=== PATIENT | female | born 1975 | race Caucasian/White ===

== ENCOUNTER → 2018-01-15 12:10 | Outpatient (CLI) | payer BC, SELFPAY ==
[2018-01-15 17:02] LABS: Anion Gap 10 (5-15); BUN 10 mg/dL (7-18); BUN/Creat Ratio 11.5 RATIO (10-20); Calcium,Total 9.4 mg/dL (8.5-10.1); Chloride 106 mmol/L (98-107); Cholesterol 188 mg/dL (200); Creatinine, Serum 0.87 mg/dL (0.55-1.02); EST Glomerular Filtration Rate 76 mL/min (>60); Est Glom Filt Rate - Afr Amer 91 mL/min (>60); Glucose 85 mg/dL (74-106); High Density Lipoprotein 48 mg/dL; LDH 248 U/L (84-246); Potassium 4.6 mmol/L (3.5-5.1); Sodium Level 140 mmol/L (136-145); Triglycerides 183 mg/dL; Very Low Density Lipoprotein 37 mg/dL (5-40)
== END ==
PROVIDERS: Family Provider Family Medicine; PCP Family Medicine; Visit Provider Family Medicine
DX: Z00.00 Encounter for general adult medical examination without abnormal findings (principal); C43.70 Malignant melanoma of unspecified lower limb, including hip
CPT/HCPCS: 36415; 80048; 80061; 83615

== ENCOUNTER → 2019-04-06 11:03 | Outpatient (CLI) | payer BC, SELFPAY ==
[2019-04-06 12:26] LABS: Hematocrit 45.5 % (37-47); Hemoglobin 14.1 g/dL (12.0-15.0); Mean Corpuscular Volume 96.8 fL (81-99); Platelet Count 270 K/mm3 (150-450); RBC Distribution Width CV 13.4 % (11.6-14.6); RBC Distribution Width SD 48.4 fl (35.1-43.9); White Blood Count 5.9 K/mm3 (4.4-11.0)
[2019-04-06 12:55] LABS: Anion Gap 6 (5-15); BUN 13 mg/dL (7-18); BUN/Creat Ratio 13.3 RATIO (10-20); Calcium,Total 9.5 mg/dL (8.5-10.1); Chloride 107 mmol/L (98-107); Creatinine, Serum 0.98 mg/dL (0.55-1.02); EST Glomerular Filtration Rate 66 mL/min (>60); Est Glom Filt Rate - Afr Amer 80 mL/min (>60); Glucose 85 mg/dL (74-106); LDH 156 U/L (84-246); Sodium Level 140 mmol/L (136-145)
== END ==
PROVIDERS: Nurse Practitioner Family; PCP Family Medicine; Visit Provider Family Medicine
DX: Z00.00 Encounter for general adult medical examination without abnormal findings (principal)
CPT/HCPCS: 36415; 80048; 83615; 85027

== ENCOUNTER → 2020-05-23 12:16 | Outpatient (CLI) | payer BC, SELFPAY ==
--- NOTE | 2020-05-23 12:19 | BI_ITS ---
MAMMOGRAPHY - BILATERAL SCREENING REASON FOR EXAM: Female, 44 years old. Routine annual screening examination. PERTINENT HISTORY: Non-contributory. TECHNIQUE: Digital bilateral breast thaddeus (3D mammographic acquisition) in the CC and MLO projections. 2-D mediolateral oblique (MLO) and craniocaudad (CC) views of both breasts were obtained. CAD: Full Field Digital Mammography with Computer Added Detection was performed. COMPARISON: Comparison is made with prior study dated 09/12/2016. FINDINGS: Breast Composition: There are scattered areas of fibroglandular density. There are no dominant masses or suspicious calcifications. No other significant abnormalities are identified. There has been no significant change since the prior study. BI/SCRN MAMM (CAD)W/THADDEUS BILAT IMPRESSION: Stable bilateral screening mammogram. Yearly follow-up mammogram recommended. (A) ASSESSMENT CATEGORY: BIRADS Category 1: Negative. A letter regarding these results will be sent to the patient by the facility within 30 days. Approximately 10% of breast cancers are not detected by mammography. A normal mammogram should not delay biopsy of a clinically suspicious abnormality. [id number] Electronically Signed: Castro Boateng MD at 8:41 EDT , Service support ,
== END ==
PROVIDERS: PCP Family Medicine; Referring Provider Student in an Organized Health Care Education/Training Program; Visit Provider Student in an Organized Health Care Education/Training Program
DX: Z12.31 Encounter for screening mammogram for malignant neoplasm of breast (principal)
CPT/HCPCS: 77063; 77067

== ENCOUNTER → 2020-09-06 12:26 | Outpatient (CLI) | payer BC, SELFPAY ==
[2020-09-07 20:08] LABS: Chlamydia By Nucleic Acid AMP Negative (Negative)
[2020-09-07 22:18] LABS: Gonococcus By Nucleic Acid AMP Negative (Negative)
[2020-09-08 22:30] LABS: HPV APTIMA, High Risk Negative (Negative)
== END ==
PROVIDERS: PCP Family Medicine; Visit Provider Obstetrics & Gynecology
DX: Z11.3 Encounter for screening for infections with a predominantly sexual mode of transmission (principal); Z12.4 Encounter for screening for malignant neoplasm of cervix
CPT/HCPCS: 87491; 87591; 87624; 88175; G0145

== ENCOUNTER 2021-06-01 11:13 | Outpatient (CLI) | payer BC, SELFPAY | END 2021-06-01 23:59 | disposition home or self-care (01) | PROVIDERS: PCP Family Medicine; Visit Provider Obstetrics & Gynecology | DX: R10.2 Pelvic and perineal pain (principal); N77.1 Vaginitis, vulvitis and vulvovaginitis in diseases classified elsewhere | CPT/HCPCS: 87086; 87088 ==

== ENCOUNTER 2021-09-21 07:38 | Day surgery (SDC) | payer BC, SELFPAY ==
[2021-09-21] VITALS (7 sets, daily range): BP systolic 108–137; BP diastolic 60–81; PULSE 64–97; RESP 16; TEMP 36.2–36.8; O2SAT 92–100; BMI 28.0
--- NOTE | 2021-09-21 | EMB_PTH ---
PATIENT: RA GUSTAFSON [place] [facility] [place][id number] AGE/SX: 45/F ROOM: RE09/21/[address]: Dr. Alicia Lo DO : 1975 BED: DIS: 09/21/2021 SPEC #: [id number] RECD: 09/21/21 11:10 STATUS: DERREK REYasmany #: [id number] LEXI: 09/21/21 00:[address]: Alicia Lo DEPT: SURGICAL PATHOLOGY RECD BY: Fritz Nayak ENTERED: 09/21/21 11:10 SP TYPE: ENDOM BX/C TAMELA DR: Dr. Jaymie Hammond MD Tissues: Endometrium, NOS Procedures: Surgery Specimen Level IV HEADER OPERATION: Hysteroscopy, D & C Ruth, IUD removal PRE-OP DIAGNOSIS: Abnormal uterine bleeding TISSUE SUBMITTED: Endometrial curettings MICROSCOPIC DIAGNOSIS Endometrial curettings: Dyssynchronous endometrium consisting of endometrial tissue with extensive exogenous hormone effect and focal area showing secretory endometrium with cystic changes. See comment. MAX:juana 09/22/2021 COMMENT A few of the fragments have polypoid appearance and may represent fragments of polyp. Clinical correlation and appropriate follow up are necessary. MICROSCOPIC DESCRIPTION Slides are reviewed. GROSS DESCRIPTION Received in fixative is one container labeled with the patient's name and designated endometrial curettings. The specimen consists of multiple irregular fragments of chou soft tissue that in aggregate measure 2.5 x 1 x 0.1 cm. The specimen is totally submitted in one cassette. / MAX:juana 09/21/2021 TC:5 CPT: 22620
--- NOTE | 2021-09-21 06:59 | PCM.HP.BLA ---
History and Physical Date of Admission: 09/21/21 HPI: 45 yo female presenting for hysteroscopy, dilation and curettage, endometrial ablation, IUD removal. ALLERGIES: Levaquin, Chest palpitations, Pcn, Trouble breathing, Levaquin, Palpitations, Penicillins, Anaphylaxis, Clindamycin and Heartburn MEDICATIONS HISTORY: 1. Liletta 20.1 mcg/24 hrs (6 yrs) 52 mg intrauterine device, As Directed 2. Singulair 4 mg chewable tablet, One pill by mouth once a day SURGICAL HISTORY: 1. 03/18/1997 Kidney stone removal when prg 2. 03/18/1980 T and A and Ear tubes 3. Melanoma, 02/28, L calf PAST PREGNANCIES: Total Pregnancies - 2; Full Term Pregnancies - 2; Premature - 0; Abortions, Induced - 0; Abortions, Spontaneous - 0; Ectopics - 0; Multiple Births - 0; Living Children - 2 FAMILY HISTORY: Father - FH: Diabetes mellitus type 2; Father - Ischemic heart disease; Mother - FH: Diabetes mellitus type 2; MaternalGrandparent - Ischemic heart disease; PaternalGrandparent - FH: Diabetes mellitus type 2; SOCIAL HISTORY: Alcohol Use - RARELY Smoking - denies smoking Drug Use - denies REVIEW OF SYSTEMS: GENERAL - Denies fever, or chills SKIN - Denies skin changes EYES - Denies visual changes EARS - Denies difficulty hearing NOSE - Denies nasal congestion or bleeding MOUTH - Denies sore throat or difficulty swallowing NECK - Denies pain or swelling RESPIRATORY - Denies shortness of breath or wheezing CARDIOVASCULAR - Denies palpitations or chest pain GASTROINTESTINAL - Denies nausea, vomiting, diarrhea, constipation GENITOURINARY - Denies dysuria, frequency of urination, incontinence of urine MUSCULOSKELETAL - Denies joint or muscle pain NEUROLOGICAL - Denies localized numbness or weakness PSYCHIATRIC - Denies depression or anxiety ENDOCRINE - Denies heat or cold intolerance, weight loss or gain HEMATO-IMMUNOLOGIC - Denies excessive bleeding with cuts PHYSICAL EXAMINATION BP- 120/64 Sitting, Right arm, regular cuff Weight- 177.0 lbs Height- 66.0 inch BMI:28.57 CONSTITUTIONAL - NAD, well nourished, and well developed SKIN - No rash, lesions, or ulcers HEENT - Normocephalic, PERRLA, EOMI LUNGS - CTA x2 without wheezes, crackles or rales CARDIAC - Regular rate and rhythm without rubs, murmurs, or gallops EXTREMITIES - No edema or calf tenderness NEUROLOGICAL - Cranial nerves II-XII grossly intact ASSESSMENT/PLAN: 1. Irregular Menstrual Cycle (BTB) Liletta placement August 2020. Has had irregular bleeding. Unpredictable. Not tolerating irregular bleeding with IUD. Plan for: hysteroscopy, dilation and curettage, endometrial ablation with heena, IUD removal R/B/A discussed, risks include, but are not limited to: risk of bleeding to the point of transfusion, infection, injury to surrounding tissue (bowel/bladder/uterine perforation), VTE, ICU admission. Pt aware and consented
[2021-09-21 08:12] LABS: Internal QC Validated? YES +Cl - CLEAR BKGD; Pregnancy, Urine Negative Negative
[2021-09-21] MEDS: Lactated Ringers 1,000 ML 125 ML IV ×2 (08:14→09:30)
--- NOTE | 2021-09-21 09:20 | DCINST_ITS ---
Discharge Instructions Diet Discharge Diet: No restrictions Activity Discharge Activity: Return to Normal Activity and May Shower May resume sexual activity in: 2 weeks Weight Bearing Status: Weight bearing as tolerated Lifting Restrictions: None Dressing / Incision Call your doctor if you observe: Fever of 101 or Higher, Change in Color, Inability to urinate, Using more than 1 pad per hour, Shortness of breath, Dizziness, Swelling in the ankles, Chest pain and Calf discomfort Follow Up Care Please Follow Up With: Alicia Lo DO When: 1-2 week postoperative visit Test Results: Test results from this visit will be discussed in further detail at your follow- up appointment, if applicable. Discharge Plan Admission Primary Reason for Your Visit: Hysteroscopy, dilation curettage, ablation, IUD removal Attending Provider: Alicia Lo Primary Care Provider: Jaymie Hammond Discharge Orders/Prescriptions Prescriptions: No Action cetirizine [Zyrtec] 10 mg Tablet 10 mg PO QHS montelukast [Singulair] 10 mg Tablet 10 mg PO DAILY multivitamin Capsule 1 cap PO DAILY Mirena 20 mcg/24 hours (7 yrs) 52 mg Intrauterine Device 20 mcg INTRAUTERINE DAILY Referrals / Follow Up: Jaymie Hammond MD [Primary Care Provider] - Disposition Disposition (needs filled in before D/C Order can be placed): Home, Self Care
--- NOTE | 2021-09-21 09:20 | PCM.OPRPT ---
Report of Operation Date of Procedure: 09/21/21 Pre-Operative Diagnosis: Abnormal uterine bleeding Post-Operative Diagnosis: Abnormal uterine bleeding Surgery/Procedure Performed:: Hysteroscopy, dilation curettage, endometrial ablation, removal of intrauterine device Description of Surgical Findings:: Normal-appearing external genitalia. IUD strings visualized, entire IUD removed. Normal-appearing endometrial cavity. Minimal uterine descensus. Type of Anesthesia: MAC Specimen's removed: Endometrial curettings Estimated Blood Loss (mL): 5 cc Fluids Replaced: 900cc Description of Procedure: Indications/risk/benefits: 45-year-old female with intermittent abnormal uterine bleeding while using IUD. Plan for intrauterine device removal, hysteroscopy, dilation and curettage, endometrial ablation. All risk, benefits, alternatives were discussed with patient. Risk include but are not limited to: Risk of bleeding to the point of transfusion, infection, injury to surrounding tissue including bowel/bladder/uterine perforation, VTE, ICU admission. Patient aware and consented. Procedure: Patient taken to the operating room and placed under MAC anesthesia. Patient placed in the dorsal lithotomy position and prepped and draped in the usual sterile fashion. Weighted speculum placed in the posterior vagina and Mendez retractor used to visualize the cervix. Anterior lip of the cervix grasped with Allis clamp. Intrauterine device grasped with ring forceps and removed. Cervix sequentially dilated. Uterus sounded to 10 cm. Hysteroscope placed through the cervical canal and inspection of the endometrial cavity completed. Hysteroscope removed. Cervical length 4 cm. Endometrial curettage completed in 360 degree manner. Ruth device opened, cavity length set to 6 cm. Ruth device placed and deployed. Cavity assessments passed. Ablation completed. Device removed. Allis clamp removed, cervix hemostatic. Weighted speculum removed. At the end of the procedure all needle, lap, sponge counts correct x2. Urine output:100cc Complications None
[2021-09-21] MEDS: HYDROcodone Bitartrate/Apap 5/325 Tablet PO (10:43)
== END 2021-09-21 11:32 | disposition home or self-care (01) ==
LOC: SDC 07:39 → AC 07:41
PROVIDERS: Anesthesiology; PCP Family Medicine; Referring Provider Student in an Organized Health Care Education/Training Program; Visit Provider Student in an Organized Health Care Education/Training Program
PROC: 0U5B8ZZ Destruction of Endometrium, Via Natural or Artificial Opening Endoscopic (ICD-10-PCS; CPT 58558; principal; 2021-09-21 09:00)
DX: N92.6 Irregular menstruation, unspecified (principal); Z30.432 Encounter for removal of intrauterine contraceptive device
CPT/HCPCS: 58563; 58301; 81025; 88305; J7120; J2405

== ENCOUNTER → 2021-11-17 | Outpatient (CLI) | payer BC, SELFPAY | END | disposition home or self-care (01) | PROVIDERS: PCP Family Medicine; Visit Provider Student in an Organized Health Care Education/Training Program | DX: N76.0 Acute vaginitis (principal) ==

== ENCOUNTER → 2022-02-26 | Outpatient (CLI) | payer BC, SELFPAY ==
[2022-02-26 17:54] LABS: Absolute Lymphocyte Count 1.32 X10^3/uL (0.83-4.51); Absolute Neutrophil Count 4.1 X10^3/uL (2.0-7.7); Basophil# 0.04 X10^3/uL; Basophil% 0.7 % (0-1); Eosinophil# 0.05 X10^3/uL; Eosinophils% 0.9 % (0-5); Hematocrit 44.2 % (37-47); Hemoglobin 13.8 g/dL (12.0-15.0); Lymphocyte # 1.32 X10^3/ul (0.83-4.51); Lymphocyte % 22.8 % (19-41); Mean Corp Hgb Conc 31.2 g/dL (32-36); Mean Corpuscular Hgb 30.4 pg (27.0-32.0); Mean Corpuscular Volume 97.4 fL (81-99); Mean Platelet Vol. 9.2 fl (6.2-12.0); Monocyte# 0.29 X10^3/uL; NRBC Flagged by Analyzer 0 % (0-5); Neutrophil # 4.07 X10^3/uL (2.7-7.7); Neutrophil % 70.3 % (47-70); Platelet Count 279 K/mm3 (150-450); RBC Distribution Width CV 13.1 % (11.6-14.6); RBC Distribution Width SD 46.9 fl (35.1-43.9); Red Blood Count 4.54 M/mm3 (4.2-5.4); White Blood Count 5.8 K/mm3 (4.4-11.0)
[2022-02-26 18:15] LABS: Vitamin B12 416 pg/mL (211-911); Vitamin D,25 Hydroxy 13.9 ng/mL
[2022-02-26 18:20] LABS: ALB/GLOB Ratio 1.3 RATIO (0.9-2.4); AST(SGOT) 13 U/L (15-37); Alanine Aminotransfer ALT/SGPT 22 U/L (13-56); Albumin, Serum 4.3 g/dL (3.2-5.0); Alkaline Phosphatase 66 U/L (45-117); Anion Gap 7 (5-15); BUN 13 mg/dL (7-18); BUN/Creat Ratio 14.3 RATIO (10-20); Calcium,Total 9.7 mg/dL (8.5-10.1); Chloride 102 mmol/L (98-107); Creatinine, Serum 0.91 mg/dL (0.55-1.02); EST Glomerular Filtration Rate 71 mL/min (>60); Est Glom Filt Rate - Afr Amer 85 mL/min (>60); Globulin 3.2 g/dL (2.2-4.2); Glucose 131 mg/dL (74-106); Potassium 4.2 mmol/L (3.5-5.1); Protein, Total 7.5 g/dL (6.4-8.2); Sodium Level 138 mmol/L (136-145)
== END | disposition home or self-care (01) ==
LOC: MFPLAB 15:19
PROVIDERS: PCP Family Medicine; Visit Provider Nurse Practitioner Family
DX: R53.83 Other fatigue (principal)
CPT/HCPCS: 36415; 80053; 82306; 82607; 84443; 85025

== ENCOUNTER → 2022-02-27 | Outpatient (CLI) | payer BC, SELFPAY ==
[2022-03-01 10:36] LABS: H. PYLORI STOOL AG Negative (Negative)
== END | disposition home or self-care (01) ==
LOC: MFPLAB 11:00
PROVIDERS: PCP Family Medicine; Visit Provider Nurse Practitioner Family
DX: R19.7 Diarrhea, unspecified (principal)
CPT/HCPCS: 87338; 87506

== ENCOUNTER → 2022-03-15 | Outpatient (CLI) | payer BC, SELFPAY ==
--- NOTE | 2022-03-15 10:59 | CT_ITS ---
STUDY: CT ABDOMEN AND PELVIS WITH CONTRAST REASON FOR EXAM: Female, 46 years old. Diffuse abdominal pain RADIATION DOSAGE (If Supplied By Facility): CTDIvol = ( 15.01 ) mGy, DLP = ( 832.18 ) mGycm TECHNIQUE: Transaxial images were obtained from the dome of the diaphragm to the symphysis pubis with oral contrast. Oral and amp;amp; IV Gastrografin and amp;amp; 100mL Isovue-300 was administered. Sagittal and coronal images were reconstructed. Individualized dose optimization techniques were used for this CT. COMPARISON: None. FINDINGS: The visualized lung bases are unremarkable. The visualized portions of the heart are within normal limits. Normal liver. Normal gallbladder and extrahepatic biliary system. Normal spleen. Normal pancreas. There is a 1 cm accessory spleen Normal bilateral adrenal glands. Normal right kidney. Normal left kidney. Normal visualized stomach. Normal small intestine. Normal colon. The appendix is visualized and appears normal. Appendix is seen on coronal recon images 63 through 67 Normal abdominal aorta. Normal inferior vena cava. Normal retroperitoneum. Normal urinary bladder. Uterus is mildly enlarged suggesting underlying fibroids. Physiologic ovarian cysts noted. There is a small umbilical hernia containing fat. Normal osseous structures. CT/Abdomen/Pelvis WITH Contrast IMPRESSION: No suspicious solid organ abnormality No free intraperitoneal fluid, air, or suspicious adenopathy, normal appendix visualized Mildly enlarged uterus suggests underlying fibroids. There are physiologic ovarian cysts. No free fluid in the dependent pelvis Electronically Signed: Oliver Ramsey MD at 15:22 EST ,
== END | disposition home or self-care (01) ==
LOC: CT 10:58
PROVIDERS: PCP Family Medicine; Referring Provider Nurse Practitioner Family; Visit Provider Nurse Practitioner Family
DX: K42.9 Umbilical hernia without obstruction or gangrene (principal); R10.84 Generalized abdominal pain; N83.209 Unspecified ovarian cyst, unspecified side; N85.2 Hypertrophy of uterus
CPT/HCPCS: 74177; Q9967; A4216

== ENCOUNTER → 2022-04-12 | Outpatient (CLI) | payer BC, SELFPAY ==
--- NOTE | 2022-04-12 14:10 | RAD_ITS ---
Examination: Lumbar spine. INDICATION: Pain. TECHNIQUE: 6 images of the lumbar spine were obtained including extension and flexion. COMPARISON: CT of the abdomen and pelvis dated March 15, 2022 FINDINGS: The alignment is grossly anatomic. The vertebral body heights are preserved. There is multilevel endplate spondylosis. There is multilevel degenerative disc disease. No suspicious bony lesions are seen. No acute fracture nor dislocation. There is a nonspecific bowel gas pattern. There are phleboliths within the pelvis. RAD/L/S Spine w Bend Min 6 Vw IMPRESSION: Multilevel degenerative changes. Electronically Signed: Nasra Malagon MD at 8:14 EST ,
== END | disposition home or self-care (01) ==
LOC: MTRAD 14:10
PROVIDERS: PCP Family Medicine; Referring Provider Nurse Practitioner Family; Visit Provider Nurse Practitioner Family
DX: M54.50 Low back pain, unspecified (principal)
CPT/HCPCS: 72114

== ENCOUNTER → 2022-06-05 | Outpatient (CLI) | payer BC, SELFPAY ==
[2022-06-05 10:36] LABS: Estradiol 217.9 pg/mL; Follicle Stimulating Hormone 4.6 mIU/mL; Luteinizing Hormone 25.1 mIU/mL
[2022-06-05 11:11] LABS: Progesterone Level < 0.21 ng/mL (See Comment)
== END | disposition home or self-care (01) ==
LOC: WOBLAB 09:46
PROVIDERS: PCP Family Medicine; Visit Provider Student in an Organized Health Care Education/Training Program
DX: N95.8 Other specified menopausal and perimenopausal disorders (principal)
CPT/HCPCS: 36415; 82670; 83001; 83002; 84144